=== PATIENT | female | born 1960 | race Caucasian/White ===

== ENCOUNTER 2023-09-06 08:22 | Outpatient (OUT) | payer OTHER, SELFPAY ==
[2023-09-06 10:08] LABS: Thyroid Stimulating Hormone 0.839 uIU/mL (0.358-3.740)
== END 2023-09-06 08:23 | disposition home or self-care (01) ==
LOC: LAB 08:26
PROVIDERS: Visit Provider Internal Medicine Cardiovascular Disease
DX: R63.4 Abnormal weight loss (principal); R55 Syncope and collapse
CPT/HCPCS: 36415; 82533; 84443